=== PATIENT | female | born 2000 | race African-American/Black ===

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

== ENCOUNTER 2021-03-11 20:37 | Emergency (ER) | payer MEDICAID ==
[~2021-03-11] VITALS: Ht 152.4 cm; Wt 77.3 kg
[~2021-03-11 20:37] MED LIST changes: +FLAGYL500 MG PO; +GLYBURIDE5 M1 PO; +HYDROCODON-ACE1 EAC7 PO; +IBUPROFEN800 MG PO; +PROTONIX20 MG PO
[2021-03-11 20:44] VITALS: BP 111/54; Ht 152.4 cm; Wt 77.3 kg
[2021-03-11 21:13] LABS: HCG URINE NEGATIVE (NEGATIVE); NITRITE NEGATIVE (NEGATIVE)
[2021-03-11 21:14] LABS: BILIRUBIN NEGATIVE (NEGATIVE); KETONE NEGATIVE (NEGATIVE); UROBILINOGEN NORMAL mg/dL (< 2)
[2021-03-11 21:15] LABS: SQUAMOUS EPITHELIAL 0-5 HPF (0-4); WHITE CELLS - URINE 0-5 HPF (0-4)
[2021-03-11 21:16] LABS: BACTERIA FEW HPF (NONE SEEN)
== END 2021-03-11 22:26 | disposition home or self-care (01) ==
LOC: D.ER 20:37
PROVIDERS: Family Medicine
DX: R11.2 Nausea with vomiting, unspecified (principal); N93.9 Abnormal uterine and vaginal bleeding, unspecified